=== PATIENT | female | born 1960 | race Caucasian/White ===

== ENCOUNTER → 2024-04-22 12:00 | Outpatient (REF) | payer OTHER, SELFPAY | LOC: DHSLP 12:00 | PROVIDERS: ATTENDING PHYSICIAN Internal Medicine; FAMILY PHYSICIAN Family Medicine | DX: G47.19 Other hypersomnia (principal); G47.8 Other sleep disorders; R06.83 Snoring | CPT/HCPCS: 95800 ==

== ENCOUNTER → 2024-05-25 13:40 | Outpatient (REF) | payer OTHER, SELFPAY | LOC: RCS 13:40 | PROVIDERS: ATTENDING PHYSICIAN Internal Medicine Cardiovascular Disease; FAMILY PHYSICIAN Family Medicine | DX: R07.89 Other chest pain (principal); R60.0 Localized edema; R06.09 Other forms of dyspnea | CPT/HCPCS: 93017 ==

== ENCOUNTER → 2024-06-15 08:33 | Outpatient (REF) | payer OTHER, SELFPAY | LOC: RCS 08:33 | PROVIDERS: ATTENDING PHYSICIAN Internal Medicine Cardiovascular Disease; FAMILY PHYSICIAN Family Medicine | DX: R07.89 Other chest pain (principal); R60.0 Localized edema; R06.09 Other forms of dyspnea | CPT/HCPCS: 93306 ==

== ENCOUNTER → 2024-06-28 09:54 | Outpatient (REF) | payer OTHER, SELFPAY | LOC: DHSLP 09:54 | PROVIDERS: ATTENDING PHYSICIAN Internal Medicine; FAMILY PHYSICIAN Family Medicine | DX: G47.33 Obstructive sleep apnea (adult) (pediatric) (principal) | CPT/HCPCS: 95810 ==

== ENCOUNTER 2025-03-02 13:55 | Emergency (ER) | payer OTHER, SELFPAY ==
[2025-03-02 14:14] VITALS: BP 141/83
[2025-03-02 14:32] LABS: Hematocrit 38.3 % (37.0-47.0); Hemoglobin 12.6 g/dL (12.0-16.0); Mean Corp Hgb Conc. 32.9 g/dL (33.0-37.0); Mean Corpuscular Volume 72.4 fL (81.0-99.0); Nucleated Red Blood Cells % 0 %; Platelet Count 228 10^3/uL (130-400); Red Cell Dist. Width 14.5 % (11.5-14.5)
[2025-03-02] MEDS: TORADOL 30 MG IV (14:36)
[2025-03-02] MEDS: DILAUDID 1 MG IV ×2 (14:37→16:39)
[2025-03-02] MEDS: ZOFRAN 4 MG IV (14:37)
[2025-03-02] MEDS: NSS 1000 IV (14:40)
[2025-03-02 14:41] VITALS: BMI 33.0
[2025-03-02 14:50] LABS: ALT (SGPT) 63 U/L (0-35); AST (SGOT) 43 U/L (14-36); Albumin 4.8 g/dl (3.5-5.0); Alkaline Phosphatase 46 U/L (38-126); Blood Urea Nitrogen 20 mg/dl (7-17); Calcium 9.7 mg/dl (8.4-10.2); Carbon Dioxide 27 mmol/L (22-30); Chloride 104 mmol/L (98-107); Estimated Creatinine Clearance 87 ml/min; Glucose 124 mg/dl (70-99); Potassium 3.8 mmol/L (3.5-5.1); Sodium 139 mmol/L (135-145); Total Protein 7.8 g/dl (6.3-8.2); eGFR > 60.00
[2025-03-02 16:44] VITALS: BP 125/87
[2025-03-02 17:06] LABS: Urine Character Bloody (Clear)
[2025-03-02 17:36] LABS: Urine Red Blood Cell >100 /HPF (0-2); Urine Squamous Cell 0-2 /LPF (Few)
--- NOTE | 2025-03-02 18:01 | ED.GENMED ---
History of Present Illness
General
Chief Complaint: Flank Pain
Source: patient and spouse (Spouse states that her pain was very severe earlier today and that she does not drink much water and drinks too much tea)
Time Seen by Provider: 03/02/25 15:16
History of Present Illness
History of Present Illness:
Note:
CHIEF COMPLAINT(S)
Excruciating pain in the left leg radiating down the ureter with gross hematuria.
HISTORY OF PRESENT ILLNESS
The patient is a 64-year-old female with a history of kidney stones coming for evaluation due to severe pain in the left leg, described as excruciating and radiating down the ureter, accompanied by gross hematuria. The patient noted the onset of
symptoms started with a twinge in the flank around 10 AM today, which escalated quickly throughout the day. Despite having had kidney stones frequently over the past 30 years, this episodes severity necessitated a visit. She formed stones
recurrently, once visualized by a urologist as multiple in each kidney. The patient is typically able to manage her symptoms at home, but this time decided to seek emergency care due to the worsening pain, which she now reports is controlled with
medication. There were no recent injuries or fever associated with her current symptoms. The patient reports no recent change in stone frequency or character, although she attributes increased episodes to recently drinking more sweet tea. A past
urologist noted as many as 14 stones per kidney on imaging.
PAST MEDICAL AND SURIGICAL HISTORY
The patient reports a history of hypertension, managed on low-dose medication. She also reports recurring kidney stones for the past 30 years.
CHRONIC MEDICAL CONDITIONS SIGNIFICANTLY AFFECTING CARE
Hypertension and recurrent nephrolithiasis (kidney stones).
MEDICATIONS
Currently taking low-dose antihypertensive medications.
REVIEW OF SYSTEMS
- Urological: Gross hematuria, history of recurrent kidney stones.
- Musculoskeletal: Pain in left leg radiating down ureter.
- Constitutional: Denies fever.
PHYSICAL EXAM
General: Alert, no acute distress.
Skin: Warm, dry.
Head: Normocephalic, atraumatic.
Neck: Supple, trachea midline.
Eye, Ears, Nose, and Throat: Oral mucosa moist.
Cardiovascular: Normal peripheral perfusion, No edema.
Respiratory: Respirations are non-labored.
Gastrointestinal: Abdomen nondistended.
Back: Normal range of motion, Normal alignment. no CVA TTP
Musculoskeletal: Normal range of motion, normal strength.
Neurological: Alert and oriented to person, place, time, and situation, No focal neurological deficit observed.
Psychiatric: Cooperative, appropriate mood & affect.
PROBLEM LIST
- Acute pain associated with kidney stones.
- Gross hematuria.
PLAN
1. Order imaging to assess for kidney stones, their location, and potential complications.
2. Monitor kidney function.
3. Ensure there is no infection associated with the stone.
4. Maintain adequate pain management.
5. Encourage the patient to increase fluid intake to aid in the passage of stones and facilitate the completion of a urine sample.
DIFFERENTIAL DIAGNOSIS
The differential diagnosis includes, in no particular order and is not limited to:
1. Nephrolithiasis (kidney stones)
2. Pyelonephritis
3. Urinary tract infection
4. Bladder stone
5. Hematuria secondary to another cause
6. Renal colic
7. Ureteral obstruction
8. Trauma to the ureter or kidney
9. Malignancy within the urinary tract
10. Benign prostatic hyperplasia (less likely given patients gender but considered in differential)
CARE-UPDATE
03/02/25 - 17:52
Patient has a 4mm distal left ureteral stone noted on CT imaging. Recommend pain management and hydration. Consider urology consult if no improvement or for intervention options if obstruction persists.
CARE-UPDATE
03/02/25 - 17:58
The patients condition is stable, with the stone descending significantly, now located in the distal ureter near the bladder. Despite the presence of blood in the urine, there are no signs of infection, and renal function remains normal. The current
plan is to manage the pain at home with ibuprofen as a base and Vicodin for breakthrough pain. The patient was educated on using a urine strainer. Prescription medications have been sent to [facility]. The patient will follow up with a urologist on
[facility]. Encouraged to stay hydrated to facilitate stone passage and advised to return if experiencing fever, uncontrollable vomiting, or severe pain.
Disposition:
SUMMARY OF ENCOUNTER
The patient, a 64-year-old female with a history of recurrent nephrolithiasis, presented to the emergency department with excruciating left flank pain radiating down the ureter, accompanied by gross hematuria. A CT scan confirmed a 4mm distal left
ureteral stone without signs of infection or renal impairment. Her pain, initially severe, is now controlled with medications. Given her stable condition, a decision was made for outpatient management.
DISPOSITION
Discharge
ASSESSMENT
The patient is experiencing renal colic secondary to the passage of a 4mm distal left ureteral stone.
PLAN
The patient is advised to manage pain at home with ibuprofen and hydrocodone-acetaminophen for breakthrough pain. She is recommended to increase fluid intake to assist stone passage and use a urine strainer. An outpatient follow-up with a urologist
on [facility] is advised. Return to the emergency department if experiencing fever, uncontrollable vomiting, or severe pain.
INDEPENDENT REVIEW OF LABS AND INTERPRETATION OF TESTS
My independent interpretation of the CT scan indicates a 4mm distal left ureteral stone with no signs of infection or renal impairment.
PATIENT EDUCATION AND COUNSELING
Counseled the patient on the importance of staying hydrated to promote stone passage and educated on using a urine strainer to catch the stone. Discussed the need for follow-up with a urologist for further management and monitoring of her condition.
FOLLOW-UP INSTRUCTIONS
The patient is instructed to follow up with a urologist.
MEDICATION RECONCILIATION
Prescription medication was prescribed, including tamsulosin (Flomax) for stone passage facilitation and ibuprofen for regular pain management, with hydrocodone-acetaminophen for breakthrough pain.
MEDICAL DECISION MAKING
-Complexity of Data Reviewed: Chronic conditions affecting care include hypertension and recurrent nephrolithiasis. Differential diagnosis includes nephrolithiasis, renal colic, and ureteral obstruction.
-Data:
Category 1
The following tests and documents were independently interpreted: CT scan showing a 4mm distal left ureteral stone.
Category 3
Discussion of management involved the decision for outpatient care with advice for follow-up with a urologist specializing in nephrolithiasis.
-Risk:
Consideration of Admission/Observation: Escalation of care including admission/observation was considered given the complexity and risk of the patients presenting complaint, exam findings, and her underlying comorbidities. However, ultimately I feel
the patient is safe for outpatient management with close follow-up. Reasoning: Work-up is reassuring, does not reveal any acute life/organ threatening processes, patients symptoms well controlled upon reevaluation, reexamination is reassuring,
vitals are stable, patient agreeable with discharge, and reliable for follow-up.
DIAGNOSIS
1. Nephrolithiasis (ICD-10: N20.2)
2. Gross hematuria (ICD-10: R31.0)
Past History
Past History
ED Past Medical History: HTN and Hypercholesterolemia
ED Past Surgical History: Gynecological and Tonsilectomy
Social History
Tobacco: Non-smoker
Personal:
Living: with family
Employment: Employed
Phy Exam
Physical Exam
Physical Exam:
.
Course
Orders/Labs/Results
Orders:
Orders
03/02/25 14:22
CT Abd/pel Without Iv Or Oral Urgent
Comment:
Reason For Exam: flank pain
IV Insert/Care/Rem.- Treatment PRN
0.9% Sodium Chloride 1000 ml [Nss] 1,000 ml IV BOLUS
HYDROmorphone [Dilaudid] 1 mg IV NOW STA
Ketorolac [Toradol] 30 mg IV NOW STA
Ondansetron Injectable [Zofran] 4 mg IV NOW STA
03/02/25 14:26
Complete Blood Count/With Diff Urgent
Comprehensive Metabolic Panel Urgent
03/02/25 16:19
HYDROmorphone [Dilaudid] 1 mg IV NOW STA
03/02/25 16:42
Urinalysis Reflex To Culture Urgent
Date Specimen was Collected: 03/02/25
Time Specimen was Collected: 14:19
Urine Microscopic Reflex Cult Urgent
Urine Culture Urgent
JESUS Source: U
Specimen Description:
Date Specimen was Collected: 03/02/25
Time Specimen was Collected: 14:19
03/02/25 18:00
Hydrocodone 5/APAP 325 [[place] 5/325] 2 tablet PO NOW STA
Abnormal Lab Results
03/02/25 03/02/25
14:26 16:42
MCV 72.4 L fL
(81.0-99.0)
MCH 23.8 L pg
(27.0-31.0)
MCHC 32.9 L g/dL
(33.0-37.0)
MPV 10.6 H fL
(7.4-10.4)
BUN 20 H mg/dl
(7-17)
Glucose 124 H mg/dl
(70-99)
AST 43 H U/L
(14-36)
ALT 63 H U/L
(0-35)
Ur Occult Blood Reflex 4+ A
(Negative)
Leukocyte Esterase Rfl 1+ A
(Negative)
Urine RBC >100 A /HPF
(0-2)
Urine Bacteria (Reflex) Few A
(Negative)
Urine Albumin (Reflex) 3+ A
(Neg - Trace)
03/02/25 14:26
03/02/25 14:26
Vital Signs
Initial and Last Documented VS:
Initial Vital Signs
Temp Pulse Resp BP Pulse Ox
98.2 F 75 20 141/83 97
03/02/25 14:14 03/02/25 14:14 03/02/25 14:14 03/02/25 14:14 03/02/25 14:14
Last Documented Vital Signs
Temp Pulse Resp BP Pulse Ox
98.2 F 73 16 125/87 98
03/02/25 14:14 03/02/25 16:44 03/02/25 16:44 03/02/25 16:44 03/02/25 16:44
*Pulse Oximetry
SaO2: 98
Oxygen Mode of Delivery: Room air
Patient hypoxic: no
*Critical Care Note
Total Time (30-74mins, 75-104mins- exclusive of procedures): Not Applicable
ED Attending Note
-
Portions of this chart may have been created with voice recognition software.� Occasional wrong word or��sound alike� substitutions may have occurred due to the inherent limitations of voice recognition software.
Discharge Plan
Departure
Patient Disposition: Home (Routine Discharge)
Date of Disposition: 03/02/25
Time of Disposition: 18:02
Patient with high blood pressure during this ER visit?: No
Discharge Problem:
Ureterolithiasis
Instructions: Kidney Stones (DC), Flank Pain (DC), How to Strain Your Urine, Narcotic Pain Medication
Prescriptions:
New
hydrocodone-acetaminophen 5-325 mg tablet
2 tab PO Q6H PRN (Reason: Pain) Qty: 15 0RF
tamsulosin [Flomax] 0.4 mg capsule
0.4 mg PO HS Qty: 20 0RF
No Action
atenolol 25 MG tablet
25 mg PO DAILY
simvastatin 20 MG tablet
20 mg PO QPM
hydrochlorothiazide 12.5 MG capsule
12.5 mg PO DAILY
hydrocodone-acetaminophen [Vicodin] 1 EACH tablet
1 ea PO Q4HPRN PRN (Reason: pain) Qty: 20 0RF
Referrals:
Didier Hoover MD [Active, Urology]
Trisha Pickard MD [Family Provider, [facility]]
Activity Restrictions/Additional Instructions:
Please see urology in follow-up in the next 1 week. Return immediately for worsening pain, intractable pain, intractable vomiting, fevers or any other concerns. Please drink plenty of fluids as discussed. Use ibuprofen every 6 hours as discussed.
Interventions
Interventions:
*Risk Screen - Suicide Last Done: 03/02/25 14:18
*General Assessment Last Done: 03/02/25 14:18
*Neglect/Abuse Screening Last Done: 03/02/25 15:01
*ED COVID-19 Vaccine History Last Done: 03/02/25 14:18
FW-Rlksxp-Crmchytzip Assessment Last Done: 03/02/25 14:59
ED-Female Genitourinary Assessment Last Done: 03/02/25 14:59
Discharge Date and Time
Print Language: MALTESE
[2025-03-02] MEDS: NORCO 5/325 2 TABLET PO (18:07)
== END 2025-03-02 18:27 | disposition home or self-care (01) ==
LOC: EMR 13:55
PROVIDERS: Emergency Medicine; EMERGENCY PHYSICIAN Emergency Medicine; FAMILY PHYSICIAN Family Medicine
DX: N13.2 Hydronephrosis with renal and ureteral calculous obstruction (principal); Z87.442 Personal history of urinary calculi; I10 Essential (primary) hypertension; E78.00 Pure hypercholesterolemia, unspecified
CPT/HCPCS: 99284; 96374; 96375 ×2; 96376; 96361; 74176; 80053; 81003; 81015; 85025; 87086

== ENCOUNTER → 2025-03-29 13:59 | Outpatient (REF) | payer OTHER, SELFPAY | LOC: WDC 13:59 | PROVIDERS: ATTENDING PHYSICIAN Family Medicine | DX: Z12.31 Encounter for screening mammogram for malignant neoplasm of breast (principal) | CPT/HCPCS: 77063; 77067 ==

== ENCOUNTER → 2025-03-29 14:38 | Outpatient (REF) | payer OTHER, SELFPAY ==
[2025-03-29 16:23] LABS: Hematocrit 36.8 % (37.0-47.0); Hemoglobin 12.4 g/dL (12.0-16.0); Mean Corp Hgb Conc. 33.7 g/dL (33.0-37.0); Mean Corpuscular Volume 72.7 fL (81.0-99.0); Nucleated Red Blood Cells % 0 %; Platelet Count 214 10^3/uL (130-400); Red Cell Dist. Width 14.5 % (11.5-14.5)
[2025-03-29 16:41] LABS: ALT (SGPT) 55 U/L (0-35); AST (SGOT) 39 U/L (14-36); Albumin 4.6 g/dl (3.5-5.0); Alkaline Phosphatase 45 U/L (38-126); Blood Urea Nitrogen 23 mg/dl (7-17); Calcium 9.8 mg/dl (8.4-10.2); Carbon Dioxide 28 mmol/L (22-30); Chloride 107 mmol/L (98-107); Glucose 86 mg/dl (70-99); HDL Cholesterol 56 mg/dl; Iron 128 ug/dl (37-170); LDL Cholesterol, Calculated 91 mg/dl; Magnesium 2.1 mg/dl (1.6-2.3); Potassium 3.7 mmol/L (3.5-5.1); Sodium 141 mmol/L (135-145); Total Protein 7.5 g/dl (6.3-8.2); Uric Acid 6.1 mg/dl (2.5-6.2); Very Low Density Lipoprotein 15 mg/dl (0-30); eGFR > 60.00
[2025-03-29 16:50] LABS: Total Iron Binding Capacity 310 ug/dl (265-497)
[2025-03-29 17:09] LABS: Ferritin 229.0 ng/ml (11.1-264.0)
[2025-03-30 07:45] LABS: Glycohemoglobin (HgbA1c) 5.9 % (4.0-5.6)
== END ==
LOC: RAD 14:38
PROVIDERS: ATTENDING PHYSICIAN Family Medicine; OTHER PHYSICIAN Specialist
DX: R91.8 Other nonspecific abnormal finding of lung field (principal); N20.1 Calculus of ureter; N20.0 Calculus of kidney; R73.03 Prediabetes; D56.3 Thalassemia minor; K21.9 Gastro-esophageal reflux disease without esophagitis; E78.5 Hyperlipidemia, unspecified; I10 Essential (primary) hypertension; Z12.31 Encounter for screening mammogram for malignant neoplasm of breast
CPT/HCPCS: 36415; 71250; 77063; 77067; 80053; 80061; 82728; 83036; 83540; 83550; 83735; 84100; 84443; 84550; 85025

== ENCOUNTER → 2025-04-07 08:11 | Outpatient (REF) | payer OTHER, SELFPAY | LOC: WDC 08:11 | PROVIDERS: ATTENDING PHYSICIAN Family Medicine | DX: R92.8 Other abnormal and inconclusive findings on diagnostic imaging of breast (principal) | CPT/HCPCS: 76642 ==